=== PATIENT | female | born 1945 | race Caucasian/White ===

== ENCOUNTER 2023-01-18 12:15 | Outpatient (OUT) | payer MEDICARE, OTHER, SELFPAY ==
[2023-01-18 12:40] LABS: Basophils Absolute Auto 0.1 10^3/uL (0.0-0.1); Basophils Percent Auto 0.8 % (0.2-2.0); Eosinophils Absolute Auto 0.1 10^3/uL (0.0-0.7); Eosinophils Percent Auto 1.6 % (0.9-7.0); Hematocrit 43.2 % (36.0-48.0); Hemoglobin 13.5 g/dL (12.0-16.0); Immature Granulocytes Abs Auto 0.02 10^3/uL (0.00-0.03); Immature Granulocytes Pct Auto 0.3 % (0.0-0.5); Lymphocytes Absolute Auto 2.9 10^3/uL (1.2-3.8); Lymphocytes Percent Auto 39.3 % (20.5-60.0); Mean Corpuscular HGB Conc 31.3 g/dL (29.9-35.2); Mean Corpuscular Hemoglobin 27.3 pg (26.7-34.0); Mean Corpuscular Volume 87.4 fL (81.0-99.0); Mean Platelet Volume 10.1 fL (9.5-13.5); Monocytes Absolute Auto 0.5 10^3/uL (0.3-0.8); Monocytes Percent Auto 7.1 % (1.7-12.0); Neutrophils Absolute Auto 3.8 10^3/uL (1.4-6.5); Neutrophils Percent Auto 50.9 % (43.0-75.0); Platelet Count 307 10^3/uL (150-450); Red Blood Count 4.94 10^6/uL (4.20-5.40); Red Cell Distribution Width 13.7 % (11.0-15.0); White Blood Count 7.4 10^3/uL (4.0-11.0)
[2023-01-18 13:33] LABS: Alanine Aminotransferase 19 U/L (14-59); Albumin Level 4.1 g/dL (3.4-5.0); Alkaline Phosphatase 74 U/L (46-116); Anion Gap 14.4; Aspartate Amino Transferase 19 U/L (15-37); BUN Creatinine Ratio 21.9; Bilirubin Direct 0.1 mg/dL (0.0-0.2); Bilirubin Total 0.9 mg/dL (0.2-1.0); Calcium 9.5 mg/dL (8.5-10.1); Carbon Dioxide 28.2 mmol/L (21.0-32.0); Chloride 101 mmol/L (98-107); Chol HDL Ratio 4.4; Cholesterol 254 mg/dL (<=200); Estimated GFR (African America >60 (>=60); Estimated GFR (Non-African Ame >60 (>=60); Globulin 4.2 g/dL; Glucose 93 mg/dL (74-106); HDL Cholesterol 58 mg/dL (40-60); Potassium 3.6 mmol/L (3.5-5.1); Sodium 140 mmol/L (136-145); Thyroid Stimulating Hormone 1.358 uIU/mL (0.358-3.740); Total Protein 8.3 g/dL (6.4-8.2); Triglycerides 112 mg/dL (<=150); VLDL CHOLESTEROL 22.4 mg/dL
== END 2023-01-18 12:16 | disposition home or self-care (01) ==
LOC: LAB 12:19
PROVIDERS: PCP Family Medicine; Visit Provider Family Medicine
DX: Z79.899 Other long term (current) drug therapy (principal); Z13.220 Encounter for screening for lipoid disorders; E66.9 Obesity, unspecified
CPT/HCPCS: 36415; 80048; 80061; 80076; 84443; 85025

== ENCOUNTER 2025-04-14 12:32 | Outpatient (OUT) | payer MEDICARE, OTHER, SELFPAY ==
--- OUTSIDE RECORDS SUMMARY | 2025-04-14 07:09 | XMS_ITS | Continuity of Care Document ---
Author Organization [facility] Address [address] [place] [address] Phone Care Team Providers Care Field Traffic Investigator Name Role Phone Matthew Alas MD Primary Care Provider Matthew Alas MD Attending Provider Care Teams Patient Care Team Team Status: Active Member Role/Relationship Status Dates Matthew Alas MD Primary Care Provider Active Patient Care Team Team Status: Inactive Member Role/Relationship Status Dates Matthew Alas MD Primary Care Provider Active S tart: April 14, 2025 End: April 14, 2025Mar HERVE Alasttending ProviderActiveStart: April 14, 2025 End: April 14, 2025 Allergies, Adverse Reactions, Alerts Allergen Type Severity Reaction Last Updated Verified Status Iodinated Contrast Media Allergy Unknown Anaphylaxis April 14, 2025 7:58am Yes Active Sulfa (Sulfonamide Antibiotics) Allergy Unknown Gastrointestinal Upset April 14, 2025 7:58am Yes Active Social History Smoking Status Status Start Date End Date Date of Observa tion Ex-smoker (finding) April 14, 2025 11:42am Observation Status Observation Response Date of Response Legal Sex Female (finding) Sex Assigned At BirthFemaleSept1944 Problems Active Problems Problem Diagnosis/Recorded Date Onset Date Stat Medicare annual wellness vis it, subsequent April 14, 2025 11:59am Unknown Active Benign essential hypertension April 14, 2025 7:58 am Unknown Active Dyslipidemia April 14, 2025 7:58am Unknown A ctive Encounter for long-term (cur rent) use of medications April 14, 2025 11:59am Unknown Active Obesity April 14, 2025 11:59am Unknown Active Medications No known medications Vital Signs Vital Reading Result Reference Range Collection Date/Time Height 64 [in_i] April 14, 2025 11:76npDrzslr72.37 kgApril 14, 2025 11:41amBody Zjvcdptzeic97.1 [degF]97.6-99.0April 14, 2025 11:41amHeart Rate68 /min 60-100April 14, 2025 11:41amRespiratory rate22 /dnr81-03EsmvsucnApril 14, 2025 11:41amOxygen saturation by Pulse msebcvjb80 %95-100April 14, 2025 11:41am BP Duubmnta033 mm[Hg]100-140April 14, 2025 11:41amBP Eocpmljbz66 mm[Hg] 60-100April 14, 2025 11:41amBMI (Body Mass Index)30.0 kg/q1UaxusemgApril 14, 2025 11:41am Advance Directives Advance Directive Response Recorded Date/ Time Advance Directives No January 1:43pm Insurance Providers Guarantor Farida Lennon Black Address [address] [address]Uiwlg[place] Info.Home Phone: Coverage Status Update:2025 Payer Group Member ID Coverage Type Subscriber Relationship to Subscriber Effective Date Expiration Date Medicare [id number] A Black Id: [id number] [address] [address] Home Phone: Email: [email or web address] Medicare Supplemental [address] [id number] [facility] [address] Work Phone: [phone] A Black Id: [id number] [address] [facility] [address] [facility] [address] Home Phone: Email: [email or web address] Encounters Encounter Location(s) Arrival/Admit Date Discharge/Departure Date Discharge/Departure Disposition Provider(s) Departed Physician/ Provider Office Visit -[facility] K[facility] April 14, 2025 11:17am April 14, 2025 12:08pm Discharged to home care or self care (routine discharge) Matthew Alas MD Plan of Treatment Future Tests Future scheduled test information is unavailable Pending Tests Test Name Ordered Date Scheduled Date Comprehensive Metabolic Panel April 14 12:02pm Future Visits Future appointment information is unavailable Future Procedures Procedure Name Ordered Date Scheduled Date A1C with Estimated Average Glu April 14 12:02pm Complete Blood Count Auto DiffNovember 2024 12:02pmLipid PanelNovember 2024 12:02pmThyroid Stimulating HormoneNovember 2024 12:02pm Future Medications Future medication information is unavailable Patient Instructions Patient instructions are unavailable
--- OUTSIDE RECORDS SUMMARY | 2025-04-14 12:42 | XMS_ITS | Clinical Summary ---
Author Organization [facility] Address [address] [place] [address] Care Team Providers Care Olive Grader Name Role Phone Matthew Alas MD Primary Care Provider [phone] Matthew Alas MD Unavailable Allergies Active AllergyReactionsCriticalityNoted DateCommentsIodinated Contrast Media YfmswyafkctLaas27/21/2017Sulfa AntibioticsGI intolerance,Efcswno2505/11/2017 Medications No known medications Active Problems ProblemNoted DateDiagnosed DateAcute non-recurrent ousmztvmfyij51/18/2025 Assessment & Plan (11/06/2024 9:16 AM EDT): Take antibiotics BID for 10 days. Use prednisone for inflammation. Use sudafed or other decongestants as needed. Use Robitussin or Robitussin-DM for cough. Can use afrin for congestion but no longer than 3 days. Can use Mucinex to bring up phlegm. Use Motrin or Tylenol as needed for fever, aches, or pains. Increase fluid intake and rest. Should improve over next 5-7 days and if no better or worsecall for re-evaluation. Medicare annual wellness visit, iwualoszuo42/20/2024 Assessment & Plan (04/10/2024 11:11 AM EST): Reviewed labs. Discussed proper diet and regular aerobic exercise. Need aerobic exercise 5-6 days aweek for 30 minutes at a time. Smaller portions and limit total calories. Tetanus every 10 years. Advised not to smoke. Benign essential ijvqccnohmdq91/20/2024 Assessment & Plan (04/10/2024 11:11 AM EST): BP normal without medication and monitor PRN. Zdmgcjswwmzf90/20/2024Overweight (BMI 25.0-29.9)04/10/2024 Resolved Problems ProblemNoted DateDiagnosed DateResolved DateLong term current use of antipsychotic dnwbcazenu30/20/202406/ Social History Tobacco UseTypesPacks/DayYears UsedDateSmoking Tobacco: FormerCigarettes Smokeless Tobacco: Never Tobacco Cessation:Counseling Given: Not Answered B1300 Health LiteracyAnswerDate RecordedHow often do you need to have someone help you when you read instructions, pamphlets, or other written material from your doctor or pharmacy?Never11/05/2024Humiliation, Afraid, Rape, and Kick questionnaireAnswerDate RecordedWithin the last year, have you been afraid of your partner or ex-partner?No11/05/2024Within the last year, have you been humiliated or emotionally abused in other ways by your partner or ex-partner?No 11/05/2024Within the last year, have you been kicked, hit, slapped, or otherwise physically hurt by your partner or ex-partner?No11/05/2024Within the last year, have you been raped or forced to have any kind of sexual activity by your part ner or ex-partner?No11/05/2024Social Connection and Isolation PanelAnswerDate RecordedIn a typical week, how many times do you talk on the phone with family, friends, or neighbors?Twice a week11/05/2024How often do you get together with friends or relatives?Once a week11/05/2024How often do you attend denominational or gnosticism services?Patient bybvodes78/17/2025Do you belong to any clubs or organizations such as denominational groups, unions, fraternal or athletic groups, or school groups?Yes11/05/2024How often do you attend meetings of the clubs or organizations you belong to?More than 4 times per year11/05/2024re you , , , , never , or living with a partner? 11/05/2024UDIT-CAnswerDate RecordedQ1: How often do you have a drink containing alcohol?Never11/05/2024Q2: How many drinks containing alcohol do you have on a typical day when you are drinking?Patient does not drink11/05/2024Q3: How often do you have six or more drinks on one occasion?Never11/05/2024Overall Financial Resource Strain (CARDIA)AnswerDate RecordedHow hard is it for you to pay for the very basics like food, housing, medical care, and heating?Not very hard 11/05/2024[facility] [place] [facility] - Occupational Stress QuestionnaireAnswerDate RecordedDo you feel stress - tense, restless, nervous, or anxious, or unable to sleep at night because yourmind is troubled all the time - these days?Only a rkbzea5611/05/2024Exercise Vital SignAnswerDate Recorded On average, how many days per week do you engage in moderate to strenuous exercise (like a brisk walk)?7 days11/05/2024On average, how many minutes do you engage in exercise at this level?50 min11/05/2024Hunger Vital SignAnswerDate RecordedWithin the past 12 months, you worried that your food would run out before you got the money to buymore.Never true11/05/2024Within the past 12 months, the food you bought just didn't last and you didn't have money to get more.Never true11/05/2024PRAPARE - TransportationAnswerDate RecordedIn the past 12 months, has lack of transportation kept you from medical appointments or from getting medications?No11/05/2024In the past 12 months, has lack of transportation kept you from meetings, work, or from getting things needed for daily living?No11/05/2024Housing Stability Vital SignAnswerDate RecordedIn the last 12 months, was there a time when you were not able to pay the mortgage or rent on time?No11/05/2024In the past 12 months, how many times have you moved where you were living?t any time in the past 12 months, were you homeless or living in a usp (including now)?No11/05/2024Comments UnknownSex and Gender InformationValueDate RecordedSex Assigned at BirthNot on fileLegal FlgNobcne82/15/2023 7:00 PM EDTGender IdentityNot on fileSexual OrientationNot on file Last Filed Vital Signs Vital SignReadingTime TakenCommentsBlood Fhkmcmje621/8411/06/2024 8:43 AM EDT Sxhdt364811/06/2024 8:43 AM KDHPfgzuzasegj31.3 ??C (97.3 ??F)11/06/2024 8:43 AM EDTRespiratory Fdhn948111/06/2024 8:43 AM EDTOxygen Vxxwteibta26%11/06/2024 8:43 AM EDTInhaled Oxygen Concentration--Nyixhn10.9 kg (174 lb)11/06/2024 8:43 AM EDT Hiphjd284.6 cm (5' 4 )11/06/2024 8:43 AM EDTBody Mass Index29.8711/06/2024 8:43 AM EDT Plan of Treatment Health MaintenanceDue DateLast DoneCommentsMedicare Annual Wellness (AWV) 1945Pneumococcal Vaccine: 65+ Years (2 of 2 - PCV20 or PCV21)02/12/2020 02/11/2019COVID-19 Vaccine ( - season)/, 03/23/2022, 03/31/2021, Additional history existsInfluenza Vaccine (#1)/, 02/07/2023, 01/31/2021, Additional history exists Insurance Care Teams Team MemberRelationshipSpecialtyStart DateEnd Date Matthew Alas MD PCP - GeneralFamily Qlftqriq64/20/24 Matthew Alas MD [address] [place] [address] PCP - [facility]06/28/24
--- OUTSIDE RECORDS SUMMARY | 2025-04-14 12:42 | XMS_ITS | Clinical Summary ---
Author Organization [facility] Address [id number] [place] [address] Care Team Providers Care Clinic Licensed Practical Nurse Name Role Phone Matthew Alas MD Primary Care Provider [phone] Allergies Active AllergyReactionsCriticalityNoted DateCommentsIodinated Contrast Media PqsrrofvbmpZikk19/21/7660QjmmymHpscnjqoliqMjik65/21/2017Sulfa (Sulfonamide Antibiotics)GI Zmipdbhafcv62/21/2017 Medications MedicationSigDispense QuantityRefillsLast FilledStart DateEnd DateStatus zwyyjgzk-mmhq-KQ-calcium &mins (THERAGRAN-M) 9 mg iron-400 mcg tablet Take 1 tablet by mouth daily.Active zinc gluconate 50 mg tablet Take 50 mg by mouth daily.Active Family History Medical HistoryRelationNameCommentsBreast cancerNeg Hx Social History Tobacco UseTypesPacks/DayYears UsedDateSmoking Tobacco: NeverSmokeless Tobacco: NeverAlcohol UseStandard Drinks/WeekCommentsNo0 (1 standard drink = 0.6 oz pure alcohol)ChildcareAnswerDate VsbtakblVlhlyeloyOuuqgee99/12/2019EmploymentAnswer Date SspiuxhcShmjinauskYyhvghm80/12/2019Purpose - LifeAnswerDate RecordedPurpose and direction in iadkTxsaqgz54/11/2021CommentsNoSex and Gender InformationValueDate RecordedSex Assigned at BirthNot on fileLegal SexFemale 12/25/2014 11:31 AM EDTGender IdentityNot on fileSexual OrientationNot on file Last Filed Vital Signs Vital SignReadingTime TakenCommentsBlood Cvkgjkqc023/8102 10:10 AM EST Lctcx758907/08/2020 10:10 AM ZDYCmdbevbeiir24.8 ??C (98.2 ??F)07/08/2020 8:40 AM ESTRespiratory Rhra516007/08/2020 10:10 AM ESTOxygen Yzvwvbecxx80%07/08/2020 10:10 AM ESTInhaled Oxygen Concentration--Cqbcok17.1 kg (170 lb)02/01/2023 8:22 AM EDT Xdhypu638.6 cm (5' 4 )02/01/2023 8:22 AM EDTBody Mass Index29.18002/01/2023 8:22 AM EDT Plan of Treatment Health MaintenanceDue DateLast DoneCommentsDepression Glfspxvcq82/17/1959Tobacco Vkzqclfwd70/17/1959DTaP,Tdap and Td Vaccines (1 - Tdap)1966Zoster (Shingles) Vaccine (1 of 2)1997Fall Risk Ayjocdmds05/17/2012RSV ( or age 60+ yrs) (1 - 1-dose 75+ series)2COVID-19 Vaccine ( - season)511/06/2021, 03/31/2021, 08/20/2020, Additional history exists Influenza Oavfqfa36/01/480327/04/2021, 02/11/2019, 02/08/2018, Additional history exists Medical Devices Not on file Insurance * Guarantor: Ava AmbrocioAccomary TypeRelation to PatientDate of BirthPhone Billing AddressPersonal/WvdxmqXysb1945 [address] [address] * Guarantor: AVA AMBROCIO AAccount TypeRelation to PatientDate of BirthPhone Billing AddressThird Republican FfjcgzpikZgolu1945 [facility] [place] [address] Care Teams Team MemberRelationshipSpecialtyStart DateEnd Date Matthew Alas MD [facility]12/26/16
[2025-04-14 12:55] LABS: Hematocrit 42.3 % (36.0-48.0); Hemoglobin 13.5 g/dL (12.0-16.0); Immature Granulocytes Abs Auto 0.02 10^3/uL (0.00-0.03); Immature Granulocytes Pct Auto 0.3 % (0.0-0.5); Lymphocytes Absolute Auto 3.1 10^3/uL (1.2-3.8); Mean Corpuscular HGB Conc 31.9 g/dL (29.9-35.2); Mean Corpuscular Hemoglobin 27.7 pg (26.7-34.0); Mean Corpuscular Volume 86.9 fL (81.0-99.0); Platelet Count 314 10^3/uL (150-450); Red Blood Count 4.87 10^6/uL (4.20-5.40); White Blood Count 7.2 10^3/uL (4.0-11.0)
[2025-04-14 13:30] LABS: Alanine Aminotransferase 18 U/L (14-59); Albumin Globulin Ratio 1.0; Albumin Level 3.7 g/dL (3.4-5.0); Alkaline Phosphatase 68 U/L (46-116); Anion Gap 10.6; Aspartate Amino Transferase 23 U/L (15-37); Blood Urea Nitrogen 12.0 mg/dL (7.0-18.0); Calcium 9.0 mg/dL (8.5-10.1); Carbon Dioxide 31.3 mmol/L (21.0-32.0); Chloride 104 mmol/L (98-107); Cholesterol 259 mg/dL (<=200); Estimated GFR (African America >60 (>=60 mL/min/1.73m^2); Estimated GFR (Non-African Ame >60 (>=60 mL/min/1.73m^2); Globulin 3.7 g/dL; Glucose 95 mg/dL (74-106); HDL Cholesterol 57 mg/dL (40-60); Potassium 3.9 mmol/L (3.5-5.1); Sodium 142 mmol/L (136-145); Thyroid Stimulating Hormone 1.851 uIU/mL (0.358-3.740); Total Protein 7.4 g/dL (6.4-8.2); Triglycerides 97 mg/dL (<=150); VLDL CHOLESTEROL 19.4 mg/dL
== END 2025-04-14 12:33 | disposition home or self-care (01) ==
PROVIDERS: PCP Family Medicine; Visit Provider Family Medicine
DX: Z79.899 Other long term (current) drug therapy (principal); E66.9 Obesity, unspecified; E78.5 Hyperlipidemia, unspecified
CPT/HCPCS: 36415; 80053; 80061; 83036; 84443; 85025